=== PATIENT | male | born 1975 | race African-American/Black ===

== ENCOUNTER 2017-11-03 15:19 | Emergency (ER) | payer MEDICAID, MEDICARE, OTHER ==
[~2017-11-03] VITALS: Ht 175.3 cm; Wt 81.8 kg
[~2017-11-03 15:19] MED LIST: HYDR-3535 PO; METO25 PO; PANT40IN3 PO; VENL100T PO; XANA2TAB2 PO; ZOLO25TA PO
[2017-11-03 15:26] VITALS: BP 116/61; PULSE 91; RESP 18; TEMP 98
[2017-11-03 15:44] VITALS: BP 138/81; PULSE 63; RESP 18; TEMP 98.6; O2SAT 100
[2017-11-03] MEDS ORDERED: VIST50CA PO (19:05)
--- NOTE | 2017-11-03 19:06 | PD ---
HPI Chief Complaint: Medication Refill Request Time Seen by Provider: 18:15 Travel History International Travel<30 days: No Contact w/Intl Traveler<30days: No Traveled to known affect area: No History of Present Illness HPI 42-year-old male here requesting refill of his Xanax. He reports a history of anxiety and has recently been out of his Xanax. He reports he is now feeling anxious and requesting refill. He is also requesting referral to [facility] in the area. He denies homicidal or suicidal ideation. He denies chest pain or shortness of breath. He is able to provide me with the name of his prior psychiatrist. 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) Musculoskeletal: No Neurologic: Yes Psychiatric: Yes Reproductive: No Respiratory: No Migraines: Yes Past Surgical History Other Surgery: Yes (STEM CELL TRANSPLANT) Social History Alcohol Use: Yes (occasional) Tobacco Use: No Substance Use: No Allergies-Medications (Allergen,Severity, Reaction): Coded Allergies: fentanyl (Unverified Allergy, Severe, Swelling, 04/08/17) fluoxetine (Unverified Allergy, Severe, Hives, 04/08/17) Reported Meds & Prescriptions Reported Meds & Active Scripts Active Vistaril (Hydroxyzine Pamoate) 50 Mg Cap 50 Mg PO TID 7 Days Pantoprazole Sodium 40 Mg Tab 40 Mg PO DAILY 30 Days Reported Zoloft (Sertraline HCl) 25 Mg Tab 25 Mg PO DAILY Effexor (Venlafaxine HCl) 100 Mg Tab 100 Mg PO BID Xanax 2 mg (Alprazolam) Alprazolam 2 mg Tab 2 Mg PO BID Lortab 10 mg/325 mg (Hydrocodone/Acetaminophen 10 mg/325 mg) 1 Tab 1 Tab PO QID PRN Metoprolol Tartrate 25 mg (Metoprolol Tartrate) 25 Mg Tab 25 Mg PO BID Review of Systems Except as stated in HPI: all other systems reviewed are Neg General / Constitutional: No: Fever Eyes: No: Visual changes HENT: No: Headaches Cardiovascular: No: Chest Pain or Discomfort Respiratory: No: Shortness of Breath Gastrointestinal: No: Abdominal Pain Genitourinary: No: Dysuria Musculoskeletal: No: Pain Skin: No Rash Neurologic: No: Weakness Psychiatric: Positive: Anxiety Physical Exam Narrative GENERAL: Alert and well-appearing 42-year-old male. No distress SKIN: Warm and dry. HEAD: Normocephalic. EYES: No scleral icterus. No injection or drainage. NECK: Supple, trachea midline. No JVD or lymphadenopathy. CARDIOVASCULAR: Regular rate and rhythm without murmurs, gallops, or rubs. RESPIRATORY: Breath sounds equal bilaterally. No accessory muscle use. GASTROINTESTINAL: Abdomen soft, non-tender, nondistended. MUSCULOSKELETAL: No cyanosis, or edema. BACK: Nontender without obvious deformity. No CVA tenderness. Data Data Last Documented VS Vital Signs Date Time Temp Pulse Resp B/P (MAP) Pulse Ox O2 Delivery O2 Flow Rate FiO2 11/03/17 15:44 98.6 63 18 138/81 (100) 100 Orders Orders Ed Discharge Order (11/03/17 19:13) MDM Medical Decision Making Medical Screen Exam Complete: Yes Emergency Medical Condition: Yes Differential Diagnosis ANXIETY, depression, medication noncompliance Narrative Course Patient is well-appearing. He was instructed that Xanax would not be prescribed from the emergency department. He was discharged home with a perception for Vistaril. He was given the name and number to the [facility] for follow-up. Diagnosis Primary Impression: Anxiety Referrals: [facility] Hydroxyzine Pamoate (Vistaril) 50 Mg Cap 50 MG PO TID for 7 Days, CAP 0 Refills Prov: Giovana Borrego 11/03/17 Disposition: 01 DISCHARGE HOME Condition: Stable Giovana Borrego Nov 03, 2017 19:06
== END 2017-11-03 19:21 | disposition home or self-care (01) ==
LOC: NEPK 15:19
DX: F41.9 Anxiety disorder, unspecified (principal); C85.90 Non-Hodgkin lymphoma, unspecified, unspecified site; Z76.0 Encounter for issue of repeat prescription
CPT/HCPCS: 99281